=== PATIENT | male | born 1990 | race Two or more races ===

== ENCOUNTER 2023-05-08 16:02 | Emergency (ER) | payer OTHER ==
[2023-05-08] MEDS ORDERED: LIDOCAINE 1% (LOCAL ANESTH.) PF 5ml SDV ID ONE (17:45)
[2023-05-08 17:56] VITALS: PULSE 79; RESP 26; O2SAT 97
[2023-05-08 19:23] VITALS: PULSE 84; RESP 18; O2SAT 96
[2023-05-08] MEDS ORDERED: KETOROLAC TROMETH 60MG/2ML VIAL IM ONE (20:00)
[2023-05-08] MEDS ORDERED: HYDROcodone-ACET 5/325MG TAB PO ONE (21:15)
[2023-05-08] MEDS ORDERED: CLIN300C70 PO (22:04)
[2023-05-09] VITALS: BP 118/72; PULSE 88; RESP 16; TEMP 98.5; O2SAT 99
== END 2023-05-09 00:16 ==
LOC: EDBD 16:02 → ER 16:02 → EEVIPCON 16:02 → ER 05-09 00:16
DX: S22.32XA Fracture of one rib, left side, initial encounter for closed fracture (principal); S62.635A Displaced fracture of distal phalanx of left ring finger, initial encounter for closed fracture; S00.432A Contusion of left ear, initial encounter; T79.7XXA Traumatic subcutaneous emphysema, initial encounter; Z88.0 Allergy status to penicillin; Y04.2XXA Assault by strike against or bumped into by another person, initial encounter; Y93.89 Activity, other specified; Y92.89 Other specified places as the place of occurrence of the external cause; Y99.8 Other external cause status
CPT/HCPCS: 10140; 70450; 70486; 71111; 72125; 73130; 96372; 99285; J1885